=== PATIENT | female | born 2005 | race Caucasian/White ===

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

== ENCOUNTER 2023-09-09 14:40 | Emergency (ER) | payer OTHER, SELFPAY ==
[2023-09-09 15:12] VITALS: BP 117/82; BP 119/76; PULSE 88; PULSE 90; RESP 16; TEMP 36.7; O2SAT 100; O2SAT 98; BMI 23.6
[2023-09-09 16:14] LABS: MANUAL DIFF FLAG NO
[2023-09-09 16:16] LABS: Basophils Absolute Auto 0.1 X10*3/uL (0.0-0.2); Basophils Percent Auto 0.4 % (0-2); Eosinophils Absolute Auto 1.3 X10*3/uL (0.0-0.4); Eosinophils Percent Auto 10.5 % (0-4); Hematocrit 44.7 % (37.0-47.0); Hemoglobin 16.7 g/dl (12.0-16.0); Imm Gran Abs Auto 0.02 X10*3/uL (0.00-0.03); Imm Gran Pct Auto 0.2 % (0.0-0.4); Lymphocytes Absolute Auto 3.8 X10*3/uL (1.2-4.9); Lymphocytes Percent Auto 30.9 % (20-40); Mean Corpuscular HGB Conc 37.4 g/dl (31.0-35.0); Mean Corpuscular Hemoglobin 32.5 pg (27.0-33.0); Mean Platelet Volume 9.1 fL (9.4-12.3); Monocytes Absolute Auto 0.8 X10*3/uL (0.1-1.2); Monocytes Percent Auto 6.5 % (2-11); Neutrophils Absolute Auto 6.3 x10*3/uL (2.0-8.3); Neutrophils Percent Auto 51.5 % (45-73); Platelet Count 358 X10*3/uL (160-400); Red Blood Count 5.14 X10*6/uL (4.20-5.50); Red Cell Distribution Width 11.6 % (11.0-16.0); White Blood Count 12.3 X10*3/uL (4.8-10.8)
[2023-09-09 16:29] LABS: Alanine Aminotransferase 14 U/L (0-31); Albumin Level 5.1 g/dL (3.5-5.0); Alkaline Phosphatase 90 U/L (39-117); Anion Gap 14 (12-20); Aspartate Amino Transferase 17 U/L (5-31); Bilirubin Total 0.5 mg/dL (0.0-1.0); Blood Urea Nitrogen 12 mg/dL (9-16); Calcium 10.2 mg/dL (8.4-10.2); Carbon Dioxide 24 mmol/L (22-29); Chloride 106 mmol/L (96-108); Creatinine Clr Calc Pharmacy 77.6; Estimated Glomerular Filt Rate > 60; Glucose Random 83 mg/dL (60-115); Potassium 4.2 mmol/L (3.3-5.1); Sodium 140 mmol/L (135-145); Total Protein 8.8 g/dL (6.5-8.0)
--- NOTE | 2023-09-09 16:49 | ECG_ITS ---
Test Reason : SEIZURE Blood Pressure : / mmHG Vent. Rate : 078 BPM Atrial Rate : 078 BPM P-R Int : 110 ms QRS Dur : 082 ms QT Int : 394 ms P-R-T Axes : 037 024 -05 degrees QTc Int : 449 ms Artifact in tracing Sinus rhythm with short [place] Otherwise normal ECG No previous ECGs available Referred By: Arabella Ji Electronically Signed By:SITA GALVIN
[2023-09-09 16:51] LABS: Appearance Urine Clear; Color Urine Yellow; Glucose Urine UA Negative (Negative); Leukocyte Esterase Urine Negative (Negative); Nitrite Urine Negative (Negative); Specific Gravity - Urine 1.015 (1.005-1.025); Urine Blood Negative (Negative); Urine Ketones Negative (Negative); Urine Protein Negative (Neg-Trace)
[2023-09-09 16:52] LABS: UPreg QC Valid YES; Urine Pregnancy NEGATIVE (NEGATIVE)
[2023-09-09 16:57] LABS: Amphetamine Screen Urine Not Detected (Not Detect); Barbiturates, Urine Not Detected (Not Detect); Benzodiazepines Screen Urine Not Detected (Not Detect); Buprenorphine Scr Not Detected (Not Detect); Cannabinoid Screen Urine POSITIVE (Not Detect); Cocaine Screen Urine Not Detected (Not Detect); Fentanyl, urine Not Detected (Not Detect); Methadone Screen, Urine Not Detected (Not Detect); Opiate Screen Urine Not Detected (Not Detect); Oxycodone Screen Urine Not Detected (Not Detect); Phencyclidine Screen Urine Not Detected (Not Detect)
--- NOTE | 2023-09-09 17:53 | ED.SEIZURE ---
HPI - Seizure General Chief Complaint: Seizure Stated Complaint: WIT SZ @ WORK,HIT HEAD PER EMS Time Seen by Provider: 09/09/23 16:09 Source: patient Mode of arrival: EMS History of Present Illness HPI Narrative: 18-year-old female who states that she has had a longstanding history of syncope, she has been evaluated by Cardiology, she saw her primary care doctor last week. Patient states that today she was going to take care of the patient and then just passed out . Patient denies evaluation by Neurology recently, she has not on medication, she does endorse a significant history of anxiety and depression but is not on medications as they have not been offered to her. LMP irregular as she is on Depo. Patient states that she was informed by a provider at the clinic that she had had a seizure. Related Data Previous Rx's ?Medication ?Instructions ?Recorded epinephrine 0.3 mg/0.3 mL 0.3 mg (0.3 mL) IM Q10M PRN 02/21/21 injection, auto-injector (EpiPen) anaphylaxis #1 ea magnesium citrate 300 ml PO ONCE #296 mL 02/20/22 ondansetron 4 mg disintegrating 4 mg PO Q8H PRN nausea and 02/20/22 tablet vomiting #10 tabs metronidazole 500 mg tablet 500 mg PO Q12H 7 days #14 tabs 03/04/22 Allergies Allergy/AdvReac Type Severity Reaction Status Date / Time No Known Allergies Allergy Verified 09/09/23 15:17 Review of Systems Review of Systems: Pertinent positives and negatives as stated in HPI PMFSH Past Medical History Source: nursing notes reviewed Medical History Asthma Social History Social History Smoked in Last 30 Days: No Use of substances other than those prescribed or required for medical reasons: No Advance Directives: No Advance Directives Information Provided: No Do you have a plan to hurt others: No Plan Physical Exam Vital Signs: Vital Signs: Last Vital Signs Temp 97.9 F 09/09/23 19:50 Pulse 75 09/09/23 19:50 Resp 16 09/09/23 19:50 BP 119/76 09/09/23 19:50 Pulse Ox 98 09/09/23 19:50 O2 Del Method Room Air 09/09/23 19:50 BMI result Body Mass Index 23.6 VITAL SIGNS: Reviewed. GENERAL: Well developed, well nourished, in no acute distress. HEAD: Normocephalic/atraumatic EYES: PERRLA, EOMI EARS: Ext canals without abnormality NOSE: Nares patent bilateral OROPHARYNX: no oral lesions noted, posterior pharynx clear NECK: Supple, no adenopathy LUNGS: Normal breath sounds. No adventitious sounds or accessory muscle use. SpO2<98> CARDIOVASCULAR: Regular rate and rhythm without noted murmurs ABDOMEN: Soft, non-tender, non-distended with bowel sounds. MUSCULOSKELETAL: No tenderness, deformities, or effusions noted on gross inspection. EXTREMITIES: No cyanosis, clubbing or edema. SKIN: Inspection of the skin reveals no rashes NEUROLOGIC: Alert and oriented x 4. Strength and sensation to light touch were grossly intact x 4. Medical Decision Making Medical Decision Making [facility] Narrative: 18-year-old female with history and clinical presentation, DDX: Will evaluate for presence of infection, anemia, electrolyte derangements, cardiac arrhythmia. I reviewed all investigations in patient presents with noninfectious leukocytosis, elevated hemoglobin and no thrombocytopenia. Chemistry indices are grossly within normal limits without ANNA or electrolyte/liver enzyme derangements. Urinalysis is negative for UTI or hematuria. Troponin is undetectable and orthostatics are negative. I discussed all results and findings with the patient at bedside, I recommended that she follow-up with your primary care doctor and discuss possible referral to Cardiology, I did provide the patient with a referral to follow-up with neurology for further evaluation reported seizure symptoms. Differential Diagnosis Differential Diagnoses: The differential diagnosis associated with the presentation includes Please see the discussion above Admission/Observation Consideration of admission/observation: Escalation of care including admission/observation considered Please see the discussion above Lab Data [facility] Lab Attestation statement: I reviewed the patient's lab results. Please see the discussion above 09/09/23 16:09 09/09/23 16:09 Labs: Lab Results 09/09/23 09/09/23 Range/Units 16:09 16:38 WBC 12.3 H (4.8-10.8) X10*3/uL RBC 5.14 (4.20-5.50) X10*6/uL Hgb 16.7 H (12.0-16.0) g/dl Hct 44.7 (37.0-47.0) % MCV 87.0 (80.0-98.0) fL MCH 32.5 (27.0-33.0) pg MCHC 37.4 H (31.0-35.0) g/dl RDW 11.6 (11.0-16.0) % Plt Count 358 (160-400) X10*3/uL MPV 9.1 L (9.4-12.3) fL Immature Gran % (Auto) 0.2 (0.0-0.4) % Neut % (Auto) 51.5 (45-73) % Lymph % (Auto) 30.9 (20-40) % [place] % (Auto) 6.5 (2-11) % Eos % (Auto) 10.5 H (0-4) % Baso % (Auto) 0.4 (0-2) % Lymph # (Auto) 3.8 (1.2-4.9) X10*3/uL [place] # (Auto) 0.8 (0.1-1.2) X10*3/uL Eos # (Auto) 1.3 H (0.0-0.4) X10*3/uL Baso # (Auto) 0.1 (0.0-0.2) X10*3/uL Abs Immat Gran (auto) 0.02 (0.00-0.03) X10*3/uL Absolute Neuts (auto) 6.3 (2.0-8.3) x10*3/uL Absolute Nucleated RBC 0.000 (0.0-0.012) X10*3/uL Nucleated RBC % (auto) 0.0 (0.0-0.2) /100WBC Sodium 140 (135-145) mmol/L Potassium 4.2 (3.3-5.1) mmol/L Chloride 106 (96-108) mmol/L Carbon Dioxide 24 (22-29) mmol/L Anion Gap 14 (12-20) BUN 12 (9-16) mg/dL Creatinine 0.86 (0.5-1.4) mg/dL Estim Creat Clear Calc 77.6 Estimated GFR > 60 Random Glucose 83 (60-115) mg/dL Calcium 10.2 (8.4-10.2) mg/dL Total Bilirubin 0.5 (0.0-1.0) mg/dL AST 17 (5-31) U/L ALT 14 (0-31) U/L Alkaline Phosphatase 90 (39-117) U/L Troponin I High Sens < 2.7 (<3.5-17.0) ng/L Total Protein 8.8 H (6.5-8.0) g/dL Albumin 5.1 H (3.5-5.0) g/dL Urine Color Yellow Urine Appearance Clear Urine pH 7.0 (5.0-9.0) Ur Specific [place] 1.015 (1.005-1.025) Urine Protein Negative (Neg-Trace) mg/dL Urine Glucose (UA) Negative (Negative) mg/dL Urine Ketones Negative (Negative) mg/dL Urine Blood Negative (Negative) Urine Nitrite Negative (Negative) Ur Leukocyte Esterase Negative (Negative) Urine Test NEGATIVE (NEGATIVE) Urine Opiates Screen Not Detected (Not Detect) Ur Buprenorphine Scrn Not Detected (Not Detect) ng/mL Ur Oxycodone Screen Not Detected (Not Detect) ng/mL Urine Methadone Screen Not Detected (Not Detect) ng/mL Urine Fentanyl Screen Not Detected (Not Detect) Ur Barbiturates Screen Not Detected (Not Detect) Ur Phencyclidine Scrn Not Detected (Not Detect) Ur Amphetamines Screen Not Detected (Not Detect) U Benzodiazepines Scrn Not Detected (Not Detect) Urine Cocaine Screen Not Detected (Not Detect) U Marijuana (THC) Screen POSITIVE H (Not Detect) Independent Interpretation I performed an independent interpretation of an: EKG Interpretation: Sinus rhythm with short RI, HR -78, no STEMI, but there are noted T-wave inversions in lead 3/V3 External Record Review External record reviewed: Outpatient record and Prior outpatient labs Critical Care Time Critical Care Time Critical Care Time: Yes Total Critical Care Time: 45 Attestation: I personally attest to this time spent taking care of the patient. Discharge Plan Discharge Clinical Impression: Syncope, Seizure Patient Disposition: Home, Self-Care Instructions: Syncope (ED), Nonepileptic Seizures (ED) Additional Instructions: Please follow-up with your primary care doctor by calling the office tomorrow. You have been provided with a referral to follow-up with neurology and can call the office in the morning to set up an appointment for re-evaluation. Return to the ER for any worsening symptoms. Prescriptions: No Action epinephrine [EpiPen] 0.3 mg/0.3 mL auto-injector 0.3 mg IM Q10M PRN (Reason: anaphylaxis) Qty: 1 0RF Rx Instructions: for 2 doses metronidazole 500 mg tablet 500 mg PO Q12H 7 Days Qty: 14 0RF magnesium citrate Solution 300 ml PO ONCE Qty: 296 0RF ondansetron 4 mg tablet,disintegrating 4 mg PO Q8H PRN (Reason: nausea and vomiting) Qty: 10 0RF Referrals: Ashlyn Todd, PHYSICIAN'S AIDE-BC [Primary Care Provider] - Adriel Lozano MD [Physician] - Interventions: ED Discharge Assessment Last Done: 09/09/23 19:50 Discharge Date/Time: 09/09/23 19:51 Print Language: Frisian
[2023-09-09 19:24] VITALS: BP 110/59; PULSE 80
[2023-09-09 19:25] VITALS: BP 119/76; BP 125/78; PULSE 82; PULSE 93
[2023-09-09 19:33] LABS: Troponin-I High Sensitivity < 2.7 ng/L (<3.5-17.0)
[2023-09-09 19:50] VITALS: BP 119/76; PULSE 75; RESP 16; TEMP 36.6; O2SAT 98
== END 2023-09-09 19:51 | disposition home or self-care (01) ==
PROVIDERS: Emergency Provider Student in an Organized Health Care Education/Training Program; PCP Nurse Practitioner Family
DX: R55 Syncope and collapse (principal); R56.9 Unspecified convulsions
CPT/HCPCS: 36415; 80053; 80307; 81003; 81025; 84484; 85025; 93005; 99283; 99284

== ENCOUNTER → 2023-09-09 16:49 | Outpatient (BNV) | payer OTHER, SELFPAY | PROVIDERS: Emergency Provider Student in an Organized Health Care Education/Training Program; PCP Nurse Practitioner Family; Visit Provider Internal Medicine | DX: R56.9 Unspecified convulsions (principal) | CPT/HCPCS: 93010 ==

== ENCOUNTER 2023-09-23 15:10 | Emergency (ER) | payer MEDICAID, SELFPAY ==
--- NOTE | 2023-09-23 15:12 | ECG_ITS ---
Test Reason : chest pain Blood Pressure : / mmHG Vent. Rate : 084 BPM Atrial Rate : 084 BPM P-R Int : 136 ms QRS Dur : 082 ms QT Int : 388 ms P-R-T Axes : 052 027 009 degrees QTc Int : 458 ms Normal sinus rhythm with sinus arrhythmia Normal ECG When compared with ECG of 09-SEP-2023 17:05, Nonspecific T wave abnormality no longer evident in Anterior leads Referred By: Generic ED Physician Electronically Signed By:JORDIN EVANGELISTA MD
--- NOTE | 2023-09-23 15:16 | PC.NURSE ---
IV removed, EKG order placed and EKG being obtained at this time
[2023-09-23 15:20] VITALS: BP 110/70; PULSE 90; O2SAT 99
== END 2023-09-23 17:30 | disposition left against medical advice (07) ==
LOC: HO.ED 16:49
PROVIDERS: Emergency Provider Emergency Medicine
DX: R07.9 Chest pain, unspecified (principal); R06.2 Wheezing; F41.9 Anxiety disorder, unspecified
CPT/HCPCS: 93005; 99282; 99283

== ENCOUNTER → 2023-09-23 15:12 | Outpatient (BNV) | payer MEDICAID, SELFPAY | PROVIDERS: Emergency Provider Emergency Medicine; Visit Provider Internal Medicine Cardiovascular Disease | DX: I49.9 Cardiac arrhythmia, unspecified (principal) | CPT/HCPCS: 93010 ==

== ENCOUNTER 2023-12-10 14:51 | Outpatient (REF) | payer OTHER, SELFPAY ==
--- NOTE | ~2023-12-10 | MR_ITS ---
EXAMINATION: MR BRAIN WITHOUT CONTRAST CLINICAL INFORMATION: Seizures. COMPARISON: Head CT dated 11/07/2022. TECHNIQUE: Multiplanar, multisequence imaging of the brain was performed without contrast. FINDINGS: No diffusion abnormalities are identified to suggest an acute infarct. The ventricles are normal in size. No mass effect or midline shift is seen. No brain parenchymal signal abnormality is noted. No extra-axial fluid collections are seen. The brainstem and cerebellum are normal. The gradient refocused acquisition is normal. The hippocampi are normal in appearance. No focal cortical dysplasia or migrational abnormality is seen. The craniovertebral junction, marrow signal, and midline structures are normal. The major intracranial flow voids at the level of the [place] are preserved. The dural venous sinus flow voids are maintained. There is [id number] mucosal thickening in the ethmoid air cells and milder mucosal thickening elsewhere in the nasal sinuses. The mastoid air cells are well aerated. MR/MR head/brain wo con IMPRESSION: Normal MRI of the brain. No hippocampal pathology or epileptogenic focus identified.
== END 2023-12-10 14:52 | disposition home or self-care (01) ==
LOC: HO.MRI 14:51
PROVIDERS: Visit Provider Psychiatry & Neurology Neurology
DX: R56.9 Unspecified convulsions (principal)
CPT/HCPCS: 70551

== ENCOUNTER 2024-03-16 16:06 | Outpatient (REF) | payer OTHER, SELFPAY ==
[2024-03-16 16:15] LABS: Appearance Urine Clear; Color Urine Yellow; Glucose Urine UA Negative (Negative); Leukocyte Esterase Urine Negative (Negative); Nitrite Urine Negative (Negative); Urine Blood Negative (Negative); Urine Ketones Negative (Negative); Urine Protein Negative (Neg-Trace)
[2024-03-16 16:21] LABS: Bacteria Urine None Seen (None Seen); Hyaline Casts Urine 0-2 /LPF (0-2); RBC Urine 0-2 /HPF (0-2); Squamous Epithelial Cell Urine 0-2 /HPF (0-2); WBC Urine 0-5 /HPF (0-5)
== END 2024-03-16 16:07 | disposition home or self-care (01) ==
LOC: HO.LNP 16:06
PROVIDERS: Visit Provider Family Medicine
DX: R35.0 Frequency of micturition (principal)
CPT/HCPCS: 81001

== ENCOUNTER 2024-11-05 13:15 | Outpatient (REF) | payer MEDICAID, SELFPAY ==
--- NOTE | ~2024-11-05 | US_ITS ---
CLINICAL HISTORY: menorrhagia Transabdominal and transvaginal pelvic ultrasound Comparison: None Findings: Uterus 8.4 x 2.9 x 4.2 cm. Reported measurements on sheet do not match images. Endometrium 2 mm. No significant free fluid. Right ovary 2.7 x 1.7 x 1.7 cm. Left ovary 2.2 x 1.9 x 1.6 cm. No significant focal abnormality. Impression: No acute process This document has been electronically signed by: Santosh Garcia MD on 11/06/2024 20:22:50
--- OUTSIDE RECORDS SUMMARY | 2024-11-05 13:46 | XMS_ITS | Clinical Summary ---
Author Organization [address] [place] [address] Address [address] [place] [address] Phone Care Team Providers Care [employer] Name Role Phone Adrianna Burk MD Primary Care Provider Allergies Active Allergy Reactions Criticality Noted Date Comments Amoxicillin High 08/24/2024 Shellfish Derived High 08/24/2024 Medications acetaminophen (TYLENOL) 500 mg tablet Take 1 tablet (500 mg total) by mouth if needed. 08/16/2024 Active Ventolin HFA 90 mcg/actuation inhaler Inhale 2 puffs by mouth if needed. 09/29/2023 Active hydrOXYzine HCL (ATARAX) 25 mg tablet Take 10 mg by mouth if needed for anxiety. 09/29/2023 Active predniSONE (DELTASONE) 20 mg tablet Take 1 tablet (20 mg total) by mouth 1 (one) time each day. 04/26/2024 Active LORazepam (ATIVAN) 0.5 mg tablet Take 1 tablet (0.5 mg total) by mouth 1 (one) time each day. Max Daily Amount: 0.5 mg Active cetirizine (ZyrTEC) 5 mg chewable tablet Chew 1 tablet (5 mg total) 1 (one) time each day. Active Encounters Date Type Department Care Team Description 08/24/2024 11:00 AM EDT Consult [address] [id number] Rolo Stinson MD Episode of altered consciousness (Primary Dx) from Last 3 Months Social History Tobacco Use Types Packs/Day Years Used Date Smoking Tobacco: Never Assessed Comments Unknown Sex and Gender Information Value Date Recorded Sex Assigned at Not on file Legal Sex Female 3:43 PM EDT Gender Identity Not on file Sexual Orientation Not on file Last Filed Vital Signs Vital Sign Reading Time Taken Comments Blood Pressure 121/86 08/24/2024 10:59 AM EDT Pulse 98 08/24/2024 10:59 AM EDT Temperature - - Respiratory Rate - - Oxygen Saturation 98% 08/24/2024 10:59 AM EDT Inhaled Oxygen Concentration - - Weight 57.6 kg (127 lb) 08/24/2024 10:59 AM EDT Height 152.4 cm (5') 08/24/2024 10:59 AM EDT Body Mass Index 24.8 08/24/2024 10:59 AM EDT Plan of Treatment Upcoming Encounters Date Type Department Care Team (Late st Contact Info) Description 02/24/2025 11:00 AM EDT Office Visit [facility] [address] [place] [address] Keisha Soliman PA [address] [place] [address] Health Maintenance Due Date Last Done Comments Gonorrhea/Chlamydia Screening 2003 Meningococcal B Vaccine (2 of 2 - [place] SCDM 2-dose series) 12/19/2023 06/20/2023 COVID-19 Vaccine ( season) 2024 06/25/2022, 06/06/2021, 05/13/2021 HIV Screening 02/19/2024 Hepatitis C Screening 02/19/2024 Social Influencers of Health Screening 02/19/2024 Cervical Cancer Screening: Pap Smear 07/12/2024 Influenza Vaccine (Season Ended) 2025 06/20/2023, 06/06/2021, 04/12/2020, Additional history exists Depression Screening 02/09/2025 02/10/2024 Annual Well Child Visit (3-21 years old) 03/16/2025 03/16/2024, 02/10/2024 DTaP,Tdap,and Td Vaccines (7 - Td or Tdap) 10/02/2025 10/03/2015, 08/04/2008, 02/27/2005, Additional history exists Hepatitis B Vaccines Completed 01/29/2005, 02/17/2004, 2003 HIB Vaccines Completed 02/27/2005, 12/2003, 2003, Additional history exists IPV Vaccines Completed 08/04/2008, 01/11, 2003, Additional history exists MMR Vaccines Completed 08/04/2008, 01/29/2005 Varicella Vaccines Completed 08/04/2008, 01/29/2005 HPV Vaccines Completed 04/01/2016, 10/03/2015 Hepatitis A Vaccines Completed 04/16/2017, 10/03/19 16 Meningococcal ACWY Vaccine Completed 05/18/2020, Pneumococcal Vaccine: Pediatrics (0 to 5 Years) and At-Risk Patients (6 to 64 Years) Completed 02/10/2024, 02/27/2005, 02/17/2004, Additional history exists RSV Immunization Patients Under 20 months Aged Out No longer eligible based on patient's age to complete this topic Insurance MEDICAID - [place] Care Teams [employer] Contractor Relationship Specialty Start Date End Date Adrianna Burk MD [address] [place] [phone] PCP - General Family Medicine 06/03/24
== END 2024-11-05 13:16 | disposition home or self-care (01) ==
LOC: HO.US 13:15
PROVIDERS: PCP Family Medicine; Visit Provider Advanced Practice Midwife
DX: N92.0 Excessive and frequent menstruation with regular cycle (principal)
CPT/HCPCS: 76830; 76856

== ENCOUNTER → 2024-11-05 13:17 | Outpatient (BNV) | payer MEDICAID, SELFPAY | PROVIDERS: PCP Family Medicine; Visit Provider Radiology Diagnostic Radiology | DX: N92.0 Excessive and frequent menstruation with regular cycle (principal) | CPT/HCPCS: 76830; 76856 ==

== ENCOUNTER 2025-04-11 10:00 | Outpatient (REF) | payer MEDICAID, SELFPAY ==
--- OUTSIDE RECORDS SUMMARY | 2025-04-11 09:15 | XMS_ITS | Encounter Summary ---
Author Organization [employer] Address [address] [place] [address] Care Team Providers Care Cooler Tender Name Role Phone Adrianna Burk MD Primary Care Provider [phone] Reason for Referral * Consultation (Routine) - Pending Review Specialty Diagnoses / Procedures Referred By Khalida barron Referred To Contact Pulmonary Disease Diagnoses Mild intermittent asthma without complication Eloisa Brambila MD [address] [place] [phone] Phone: tel: fax: Referral ID Status Reason Start Date Expiration Date Visits Requested Visits Authorized [id number] Pending Review Specialty Services Required 04/11/2025 04/11/2026 1 1 Reason for Visit * Reason Comments Annual Exam Encounter Details Date Type Department Care Team (Late st Contact Info) Description 04/11/2025 9:15 AM EST Office Visit [facility] [address] [place] [address] [phone] Eloisa Brambila MD [address] [place] [address] [phone] Mild intermittent asthma without complication (Primary Dx); Vaccine counseling; Screening-pulmonary TB; Encounter for hepatitis C screening test for low risk patient; Screening for HIV without presence of risk factors; Impacted cerumen, left ear; Physical exam Social History Tobacco Use Types Packs/Day Years Used Date Smoking Tobacco: Never Passive Smoke Exposure: Never Smokeless Tobacco: Never Alcohol Use Standard Drinks/Week Comments Never 0 (1 standard drink = 0.6 oz pur e alcohol) Depression Answer Date Recorded Patient Health Questionnaire-9 Score 12/02/2024 Patient Health Questionnaire-9 Score 12/02/2024 Last PHQ-9: Questionnaire Data Not on file 0 12/02/2024 Housing Stability Answer Date Recorded What is your housing situation today? I have anna kuo 04/11/[address] you li ve. Do you have problems with any of the following? None of the above 04/11/2025 Food Insecurity Answer Date Recorded Within the past 12 months, y ou worried that your food would run out before you got money to buy more: Never True 04/11/2025 Within the past 12 months,th e food you bought just didn't last and you didn't have enough money to get more: Never True 05/2024 Transportation Answer Date Recorded In the past 12 months, has l ack of transportation kept you from medical appts, meetings, work or from getting things needed for daily living? No 04/11/2025 Utilities Answer Date Recorded In the past 12 months, has t he electric, gas, oil or water company threatened to shut off services in your home? No 04/11/2025 Depression Answer Date Recorded Patient Health Questionnaire-2 Score 5 12/02/2024 Internet Access Answer Date Recorded Internet Access Q1 No 04/11/2025 Internet Access Q2 I do not want or need it 05/2024 Comments No Sex and Gender Information Value Date Recorded Sex Assigned at Female 09/12/2023 9:36 AM EDT Legal Sex Female 9:36 AM EDT Gender Identity Female 09/12/2023 9:36 AM EDT Sexual Orientation Choose not to disclose 2023 9:36 AM EDT documented as of this encounter Last Filed Vital Signs Vital Sign Reading Time Taken Comments Blood Pressure 110/76 04/11/2025 9:30 AM EST Pulse 86 04/11/2025 9:30 AM EST Temperature 37.2 C (98.9 F) 04/11/2025 9:30 AM EST Respiratory Rate 20 04/11/2025 9:30 AM EST Oxygen Saturation 54% 04/11/2025 9:30 AM EST Inhaled Oxygen Concentration - - Weight 60.1 kg (132 lb 9.6 oz) 04/11/2025 9:30 A M EST Height 152.4 cm (5') 04/11/2025 9:30 AM EST Body Mass Index 25.9 04/11/2025 9:30 AM EST documented in this encounter Progress Notes * Eloisa Brambila MD - 04/11/2025 9:15 AM EST Subjective Arminda Rendon is a 19 y.o. female who has seizure disorder, asthma, and anxity, and patient presentsfor physicl exam due ton eeding for work. Last PCP visit with Dr. Burk 11/2024. Neurology was rescheduled twice, does not have appointment Was told by broodmare barn groom that needs referral. I advised her to all as referral was placed 09/2024. Agrees to pulmonology referral 04/11/25 for uncontrolled asthma. Has therapist. NO longer taking sertraline. Need MMR titers and Tb screen. SH: Denies tobacco, EtOH , recreational drugs, wears seatbelt. Live with mother. Has control patch prescribed by OB. Reports had pap last month at [facility]. Review of Systems Constitutional: Negative for activity change, appetite change and fever. Respiratory: Negative for shortness of breath. Cardiovascular: Negative for chest pain. Objective Vitals: 04/11/25 0930 BP: 110/76 BP Location: Left arm Patient Position: Sitting BP Cuff Size: Adult Pulse: 86 Resp: 20 Temp: 98.9 ??F (37.2 ??C) TempSrc: Temporal SpO2: (!) 54% Weight: 132 lb 9.6 oz (60.1 kg) Height: 5' (1.524 m) Physical Exam Constitutional: General: She is not in acute distress. Appearance: Normal appearance. She is not ill-appearing. HENT: Head: Normocephalic and atraumatic. Left Ear: There is impacted cerumen. Mouth/Throat: Mouth: Mucous membranes are moist. Eyes: Extraocular Movements: Extraocular movements intact. Pupils: Pupils are equal, round, and reactive to light. Cardiovascular: Rate and Rhythm: Normal rate and regular rhythm. Heart sounds: No murmur heard. Pulmonary: Effort: Pulmonary effort is normal. No respiratory distress. Breath sounds: Normal breath sounds. No wheezing or rhonchi. Skin: General: Skin is warm. Neurological: Mental Status: She is alert. Mental status is at baseline. Psychiatric: Speech: Speech normal. Behavior: Behavior normal. Behavior is cooperative. Thought Content: Thought content normal. Thought content does not include suicidal ideation. Thought content does not include suicidal plan. Cognition and Memory: Cognition and memory normal. Judgment: Judgment normal. Screenings: PHQ-2/9 Score: Patient Health Questionnaire-9 Score: 19 (12/02/2024 9:07 AM) Patient Health Questionnaire-2 Score: 5 (12/02/2024 9:07 AM) Thoughts that you would be better off or hurting yourself in some way: Several days (59:07 AM) JORGE-7 Score: JORGE-7 Total Score: 21 (12/02/2024 9:08 AM) Allergies[1] Current Outpatient Medications Medication Instructions acetaminophen (TYLENOL) 500 mg, Oral, Every 6 hours PRN albuterol 2.5 mg, Nebulization, Every 4 hours PRN azelastine (Astelin) 0.1 % nasal spray 1 spray, Nasal, 2 times daily Blood Pressure Monitor misc Check BP daily budesonide-formoterol (Symbicort) 160-4.5 MCG/ACT inhaler Take 2 puffs twice daily. May use 1-2 puffs every 4 hours as needed for difficulty breathing. Maximum 12 puffs per day. Rinse mouth with water after use. cetirizine (ZYRTEC) 10 mg, Oral, Daily chlorhexidine (Peridex) 0.12 % solution Swish 15 mL morning and night for 1 minute. Spit, do not swallow. Do not eat or drink for 30 minutes following use. docusate sodium (Colace) 100 MG capsule TAKE 1 CAPSULE (100 MG) BY MOUTH IN THE MORNING AND AT BEDTIME NEEDED FOR CONSTIPATION EPINEPHrine (Epipen) 0.3 MG/0.3ML injection syringe Inject into muscle immediately for signs of anaphylaxis AND call 911. Repeat if symptoms worsen/recur or if uncertain medicine was given fluticasone (Flonase) 50 MCG/ACT nasal spray ibuprofen 600 MG tablet 1 tablet every 8 hours with food during menses LORazepam (Ativan) 0.5 MG tablet Once daily and as needed for seizure mometasone (Elocon) 0.1 % cream APPLY TO AFFECTED AREA EVERY DAY FOR 14 DAYS montelukast (SINGULAIR) 10 mg, Oral, Daily norelgestromin-ethinyl estradiol (Ortho-Evra) 150-35 MCG/24HR Apply 1 patch each week for 3 weeks, then remove for 1 week. sertraline (ZOLOFT) 100 mg, Oral, Daily Spacer/Aero-Holding Chambers (AeroChamber Plus Shilo-Vu Large) [facility] dicct Assessment & Plan Mild intermittent asthma without complication Using rescue inhailer daily. -Continue Symbicort and Singular. -Referral to pulmonology Orders: Referral to Pulmonology; Future Vaccine counseling Orders: T-SPOT??.TB; Future Screening-pulmonary TB Orders: Measles, Mumps, and Rubella (MMR) Antibodies (IgG) Panel, Immune Status; Future Encounter for hepatitis C screening test for low risk patient Orders: Hepatitis C Antibody with Reflex to HCV, RNA, Quantitative, Real-Time PCR; Future Screening for HIV without presence of risk factors Orders: HIV-1/2 Antigen and Antibodies, Fourth Generation, with Reflexes; Future Impacted cerumen, left ear Orders: carbamide peroxide (Debrox) 6.5 % otic solution; Administer 5-10 drops into affected ear(s) 2 timesdaily for 4 days. Physical exam Normal growth and development. Anticipatory guidance discussed. [1] Allergies Allergen Reactions Amoxicillin Shellfish Protein-Containing Drug Products Anaphylaxis shrimp Amoxicillin-Pot Clavulanate documented in this encounter Miscellaneous Notes * Assessment & Plan Note - Eloisa Brambila MD - 04/11/2025 9:15 AM EST Associated Problem(s): Asthma Using rescue inhailer daily. -Continue Symbicort and Singular. -Referral to pulmonology Orders: Referral to Pulmonology; Future documented in this encounter Plan of Treatment Upcoming Encounters Date Type Department Care Team (Late st Contact Info) Description 04/28/2025 11:15 AM EST Office Visit [facility] [address], [place] [phone] Adrianna Burk MD [address] [place] [address] Scheduled Orders Name Type Priority Associated Diagnoses Orde r Schedule T-SPOT .TB Lab Routine Vaccine counseling Expected: 04/11/2025 (Approximate), Expires: 04/11/2026 Measles, Mumps, and Rubella (MMR) Antibodies (IgG) Panel, Immune Status Lab Routine Screening-pulmonary TB Expected: 04/11/2025 (Approximate), Expires: 04/11/2026 Hepatitis C Antibody with Reflex to HCV, RNA, Quantitative, Real-Time PCR Lab Routine Encounter for hepatitis C screening test for low risk patient Expected: 04/11/2025 (Approximate), Expires: 04/11/2026 HIV-1/2 Antigen and Antibodies, Fourth Generation, with Reflexes Lab Routine Screening for HIV without presence of risk factors Expected: 04/11/2025 (Approximate), Expires: 04/11/2026 Scheduled Referrals Name Type Priority Associated Diagnoses Orde r Schedule Referral to Pulmonology Outpatient Referral Routine Mild intermittent asthma without complication Expected: 04/11/2025 (Approximate), Expires: 04/11/2026 documented as of this encounter Visit Diagnoses Diagnosis Mild intermittent asthma without complication- Primary Vaccine counseling Screening-pulmonary TB Screening examination for pulmonary tuberculosis Encounter for hepatitis C screening test for low risk patient Screening for HIV without presence of risk factors Impacted cerumen, left ear Physical exam Unspecified general medical examination documented in this encounter Additional Health Concerns Assessment Noted Time PHQ-9 Depression Total Score: 19 12/02/2 025 9:07 AM EDT documented as of this encounter Care Teams Cooler Tender Relationship Specialty Start Date End Date Adrianna Burk MD [address] [place] [address] PCP - General Family Medicine 11/21/23 documented as of this encounter
[2025-04-11 11:30] LABS: Hematocrit 44.5 % (37.0-47.0); Hemoglobin 15.7 g/dl (12.0-16.0); Mean Corpuscular HGB Conc 35.3 g/dl (31.0-35.0); Mean Corpuscular Hemoglobin 32.0 pg (27.0-33.0); Mean Corpuscular Volume 90.8 fL (80.0-98.0); NRBC Abs Auto 0.000 X10*3/uL (0.0-0.012); NRBC Pct Auto 0.0 /100WBC (0.0-0.2); Platelet Count 391 X10*3/uL (160-400); Red Blood Count 4.90 X10*6/uL (4.20-5.50); White Blood Count 9.6 X10*3/uL (4.8-10.8)
--- OUTSIDE RECORDS SUMMARY | 2025-04-11 12:11 | XMS_ITS | Clinical Summary ---
Author Organization [employer] Address [address] [place] [address] Care Team Providers Care Teradata Solution Architect Name Role Phone Adrianna Burk MD Primary Care Provider [phone] Allergies Active Allergy Reactions Criticality Noted Date Comments Amoxicillin High 08/24/2024 Amoxicillin-Pot Clavulanate 06/14/19 23 Shellfish Protein-Containing Drug Products Anaphylaxis High 06/18/2022 shrimp Medications * This document contains information received from the source organization and may not represent a complete record from that organization. azelastine (Astelin) 0.1 % nasal spray Administer 1 spray into affected nostril(s) 2 times daily. Active EPINEPHrine (Epipen) 0.3 MG/0.3ML injection syringe Inject into muscle immediately for signs of anaphylaxis AND call 911. Repeat if symptoms worsen/recur or if uncertain medicine was given Active fluticasone (Flonase) 50 MCG/ACT nasal spray 023 Active mometasone (Elocon) 0.1 % cream APPLY TO AFFECTED AREA EVERY DAY FOR 14 DAYS 024 Active Spacer/Aero-Hol ding Chambers (AeroChamber Plus Hsilo-Vu Large) [facility] dicct 024 Active albuterol (2.5 MG/3ML) 0.083% nebulizer solution Take 3 mL (2.5 mg) by nebulization every 4 (four) hours if needed for wheezing or shortness of breath (Maximum 4 treatments per day). 75 mL 1 024 Active Blood Pressure Monitor [facility] Check BP daily 1 each 024 Active norelgestromin- ethinyl estradiol (Ortho-Evra) 150-35 MCG/24HR Apply 1 patch each week for 3 weeks, then remove for 1 week. 3 patch 11 Active acetaminophen (Tylenol) 500 MG tablet Take 1 tablet (500 mg) by mouth every 6 (six) hours if needed for mild pain for up to 20 doses. 20 tablet Active chlorhexidine (Peridex) 0.12 % solution Swish 15 mL morning and night for 1 minute. Spit, do not swallow. Do not eat or drink for 30 minutes following use. 473 mL Active ibuprofen 600 MG tablet 1 tablet every 8 hours with food during menses 21 tablet 2 Active montelukast (Singulair) 10 MG tablet Take 1 tablet (10 mg) by mouth Once per day. 90 tablet 3 025 2025 Active LORazepam (Ativan) 0.5 MG tablet Once daily and as needed for seizure 28 tablet Active budesonide-form oterol (Symbicort) 160-4.5 MCG/ACT inhalerIndicati ons:Mild intermittent asthma with acute exacerbation Take 2 puffs twice daily. May use 1-2 puffs every 4 hours as needed for difficulty breathing. Maximum 12 puffs per day. Rinse mouth with water after use. 1 each 1 Active cetirizine (ZyrTEC) 10 MG tablet Take 1 tablet (10 mg) by mouth Once per day. 90 tablet 3 Active docusate sodium (Colace) 100 MG capsule TAKE 1 CAPSULE (100 MG) BY MOUTH IN THE MORNING AND AT BEDTIME NEEDED FOR CONSTIPATION 180 capsule 1 Active carbamide peroxide (Debrox) 6.5 % otic solutionIndicat ions:Impacted cerumen, left ear Administer 5-10 drops into affected ear(s) 2 times daily for 4 days. 30 mL 025 2024 Active sertraline (Zoloft) 100 MG tablet Take 1 tablet (100 mg) by mouth Once per day. 90 tablet 3 025 2024 Discontinued(M ed list cleanup (will not trigger notification to Pharmacy)) Active Problems Problem Noted Date Diagnosed Date Depression 12/02/2024 JORGE (generalized anxiety disorder) 12/02/2024 Impacted cerumen of left ear 11/02/2024 Benign paroxysmal positional vertigo, left 07/08 Assessment & Plan (07/08/2024 2:22 PM EST): Images from the original note were not included. Reported (room-spinning)dizziness. Nystagmus with tilting head to the left. Consistent with benign paroxysmal positional vertigo. -given information for vertigo exercises and supportive therapy. [email or web address] TBI (traumatic brain injury) 02/10/2024 Assessment & Plan (12/03/2024 8:31 PM EDT): - concussion while playing basketball, fell backwards and hit head in 2017 - no LOC, but patient had a vomiting and neck pain - her seizure (seizure-like activity) may be due to TBI; consider referring Assessment & Plan (03/21/2024 3:50 PM EST): - concussion while playing basketball, fell backwards and hit head in 2017 - no LOC, but patient had a vomiting and neck pain - her seizure (seizure-like activity) may be due to TBI; consider referring Assessment & Plan (02/10/2024 10:59 AM EDT): - concussion while playing basketball, fell backwards and hit head in 2017 - no LOC, but patient had a vomiting and neck pain - her seizure (seizure-like activity) may be due to TBI; consider referring 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 Assessment & Plan (03/21/2024 3:57 PM EST): - history of trauma (her friend's suicide that resulted in PTSD symptoms, including flashbacks, nightmares, suicidal ideation) - previously connected with behavioral health service - patient declines a referral to integrated behavioral health service for another behavioral health service - continue escitalopram - reviewed judicious use of THC/CBD Recurrent syncope 09/10/2023 Overview (02/09/2024): 04/2019: EEG ( wake & asleep. Photic stim & hyperventilation did not trigger any events) & EKG normal 2019: Saw Dr Baez (cardiology). All well. 48 hour Holter done - no result 09/29/23: [place] to be vasovagal syncope, but question of epilepsy also. Pt admits to anxiety. Has Neurology appt on 10/21/23 and Cardiology appt on 11/06/23. While I feel there is a significant anxiety component to her syncope, the increased frequency and nature of these episodes (LOC longer than 5 minutes along with vomiting) are concerning. Syncope prevention counseling done at length with pt. She will schedule an anxiety consult with either myself or PCP. Advised she get car rides instead of driving herself until cleared by Neurology. Last Assessment & Plan: [place] to be vasovagal syncope, but question of epilepsy also. Pt admits to anxiety. Has Neurology appt on 10/21/23 and Cardiology appt on 11/06/23. While I feel there is a significant anxiety component to her syncope, the increased frequency and nature of these episodes (LOC longer than 5 minutes along with vomiting) are concerning. Syncope prevention counseling done at length with pt. She will schedule an anxiety consult with either myself or PCP. Advised she get car rides instead of driving herself until cleared by Neurology. Assessment & Plan (07/08/2024 2:20 PM EST): Seen in walk-in 07/08/24 for (room-spinning)dizziness. Nystagmus with tilting head to the left. Consistent with benign paroxysmal positional vertigo. See plan under BPPV. Assessment & Plan (06/02/2024 4:59 PM EST): - following with Dr. Nestor quintero 48 hour Holter - likely vasovagal - obtain record - reviewed precautionary measure Assessment & Plan (03/21/2024 3:53 PM EST): - following with Dr. Nestor quintero 48 hour Holter - likely vasovagal - obtain record - reviewed precautionary measure Assessment & Plan (02/17/2024 9:41 AM EDT): - following with Dr. Nestor quintero 48 hour Holter - likely vasovagal - obtain record - reviewed precautionary measure Seizure-like activity (CMS/HCC) 09/10/2023 Assessment & Plan (12/03/2024 8:31 PM EDT): - seen by Dr. Jones. Prescribed clonazepam. - second opinion mychal Harper on 08/24/24. Referred to Dr. Williamson, upcoming appointment on 11/25/24. No AED. - normal MRI in November 2023 - normal EEG in 2019 - patient states she had EEG in 2023 (result is not available). - continue judicious use of lorazepam - ?pseudoseizure - continue working on stress reduction and precautionary measure - patient states she is still driving and is aware of its risk Assessment & Plan (09/24/2024 10:38 AM EDT): - seen by Dr. Jones. Prescribed clonazepam. - second opinion mychal Harper on 08/24/24. Referred to Dr. Williamson, upcoming appointment on 11/25/24. No AED. - normal MRI in November 2023 - normal EEG in 2018 - patient states she had EEG in 2023 (result is not available). - continue judicious use of lorazepam - ?pseudoseizure - continue working on stress reduction and precautionary measure - patient states she is still driving and is aware of its risk Assessment & Plan (06/06/2024 12:24 PM EST): - following with Dr. Jones - normal MRI in November 2023 - normal EEG in 2019 - patient states she had EEG in 2023 (result is not available). - currently prescribed clonazepam prn, but patient dislikes its side effect. - will switch to short-acting lorazepam. Discussed about its side effect. - ?pseudoseizure - continue working on stress reduction and precautionary measure - patient states she is still driving and is aware of its risk - patient requests a referral to another neurologist for second opinion Assessment & Plan (03/21/2024 3:51 PM EST): - following with Dr. Jones - normal MRI in November 2023 - patient states she had EEG (result is not available). - currently prescribed clonazepam prn - ?pseudoseizure - continue working on stress reduction and precautionary measure - patient states she is still driving and is aware of its risk - patient requests a referral to another neurologist for second opinion Assessment & Plan (02/17/2024 9:38 AM EDT): - following with Dr. Jones - normal MRI in November 2023 - patient states she had EEG (result is not available). - not on anti-seizure medication - ?pseudoseizure - continue working on stress reduction and precautionary measure - patient states she is still driving and is aware of its risk Allergic rhinitis 06/20/2023 Overview (02/09/2024): 09/29/23: Advised pt that she optimize her allergic rhinitis prevention and control. Counseling done. Last Assessment & Plan: Advised pt that she optimize her allergic rhinitis prevention and control. Counseling done. Assessment & Plan (12/02/2024 9:35 AM EDT): - due to animal hair and dander - continue cetirizine and fluticasone nasal - continue montelukast - referred back to [facility] for AIT / SCIT or biologics in September 2024 Assessment & Plan (09/24/2024 10:31 AM EDT): - due to animal hair and dander - continue cetirizine and fluticasone nasal - add montelukast - refer back to [facility] for AIT / SCIT or biologics Assessment & Plan (03/21/2024 3:59 PM EST): - due to animal hair and dander - continue cetirizine and fluticasone nasal Assessment & Plan (02/17/2024 9:46 AM EDT): - due to animal hair and dander - continue cetirizine and fluticasone nasal Asthma 06/20/2023 Overview (02/09/2024): 09/29/23: Currently flared in the setting of poorly controlled seasonal allergies. Wheezing and tight in office and responded very well to Albuterol neb. Advised 3-day course of oral steroids for current flare. Advised she resume taking her daily controller (now Asmanex). Albuterol prn with spacer. Counseling done. Recheck in 4 weeks or sooner if needed. Last Assessment & Plan: Currently flared in the setting of poorly controlled seasonal allergies. Wheezing and tight in office and responded very well to Albuterol neb. Advised 3-day course of oral steroids for current flare. Advised she resume taking her daily controller (now Asmanex). Albuterol prn with spacer. Counseling done. Recheck in 4 weeks or sooner if needed. Assessment & Plan (04/11/2025 10:24 AM EST): Using rescue inhailer daily. -Continue Symbicort and Singular. -Referral to pulmonology Orders: Referral to Pulmonology; Future Assessment & Plan (12/02/2024 9:42 AM EDT): - most recent asthma exacerbation in October 2024. Received prednisone. - continue SMART with budesonide / formoterol (Symbicort) - continue montelukast (Singulair) Assessment & Plan (09/24/2024 10:39 AM EDT): - start SMART. Switch fluticasone ICS to budesonide / formoterol (Symbicort) - Prescribed montelukast (Singulair) 10 MG tablet 09/23/24 - Prescribed budesonide-formoterol (Symbicort) 160-4.5 MCG/ACT inhaler 09/23/24 Assessment & Plan (06/02/2024 4:58 PM EST): - continue fluticasone ICS - continue albuterol HFA and neb prn Assessment & Plan (03/21/2024 3:52 PM EST): - continue fluticasone ICS - continue albuterol HFA and neb prn - will write a script for nebulizer Assessment & Plan (02/17/2024 9:40 AM EDT): - continue fluticasone ICS - continue albuterol HFA prn Multiple allergies 08/30/2022 Overview (02/09/2024): Seen 08/27/22 by [facility] in [facility] Assessment & Plan: Will get notes from allergy visit Assessment & Plan (12/02/2024 9:34 AM EDT): - previously evaluated by [facility] - continue cetirizine and fluticasone nasal - continue montelukast - referred back to financial assistance specialist for allergen immunotherapy (subcutaneous immunotherapy) / or biologic treatment in September 2024. Advised to call the office for an appointment. Assessment & Plan (09/24/2024 10:31 AM EDT): - previously evaluated by [facility] - continue cetirizine and fluticasone nasal - add montelukast - refer back to financial assistance specialist for allergen immunotherapy (subcutaneous immunotherapy) / or biologic treatment Assessment & Plan (03/21/2024 3:57 PM EST): - previously evaluated by [facility] - start cetirizine Allergy to seafood 06/18/2022 Overview (02/09/2024): 06/18/2022 had anaphylaxis reaction to exposure to shrimp. Has an Epipen. Has appt with [facility] in August. Continue to avoid all seafood until evaluated by [employer]. Last Assessment & Plan: Epipen refilled today Assessment & Plan (12/03/2024 8:30 PM EDT): - continue avoidance and carry epi pen Assessment & Plan (03/21/2024 3:59 PM EST): - continue avoidance and carry epi pen Assessment & Plan (02/17/2024 9:45 AM EDT): - continue avoidance and carry epi pen Chronic idiopathic constipation 06/18/2022 Overview (02/09/2024): ER visit on 02/20/2022 for abdominal pain, dx with constipation, placed on miralax, magnesium citrate 300 mg, and zofran. ER visit on 02/26 for vomiting 03/06/2022 visit for nausea and vomiting recurrent 06/18/2022 still with constipation despite TID Miralax. No nausea or vomiting but decreased appetite. Refer to GI. Start with 6 small meals per day. Decrease Miralax to BID until GI appt. Last Assessment & Plan: Better with miralax, no longer with hard or painful stools Assessment & Plan (12/02/2024 9:35 AM EDT): - History of ED visit for abdominal pain. Imaging study showed constipation. Rx Miralax, Mg citrat. - Continue prune / prune juice - Continue docusate; consider senna - Encouraged to increase fiber in her diet Assessment & Plan (09/24/2024 10:33 AM EDT): - History of ED visit for abdominal pain. Imaging study showed constipation. Rx Miralax, Mg citrat. - Continue prune / prune juice - Trial of docusate; consider senna - Encouraged to increase fiber in her diet Assessment & Plan (03/21/2024 3:53 PM EST): - History of ED visit for abdominal pain. Imaging study showed constipation. Rx Miralax, Mg citrat. - Improved Assessment & Plan (02/17/2024 9:42 AM EDT): - History of ED visit for abdominal pain. Imaging study showed constipation. Rx Miralax, Mg citrat. - Improved Anxiety with depression 12/07/2021 Overview (02/09/2024): Evaluation appointment on 11/23/21 and follow up scheduled. 02/27/22 - Pt did follow-through with previous treatment with another [facility] Pt's anxiety has increased while she is away at school - is miserable and is experiencing daily vomiting. Also seems to be developing some depressive symptoms. 09/29/23: Pt admits to significant anxiety and some depression today. PHQ-9 screen 14, JORGE-7 score 21. This may be a major contributor to her sudden increase in frequency of fainting episodes ever since she started a new job 2 months ago. Advised a separate consult rachel to discuss further. Declining [facility] today. 10/16/23: Anxiety consult today - JORGE-7 score 21, PHQ-9 score 16. Significant disabling anxiety that is affecting all aspects of her daily functioning. She is declining medication at this time, but does agree to [facility] intervention. WHO done. Will followup in one month. Last Assessment & Plan: Anxiety consult today - JORGE-7 score 21, PHQ-9 score 16. Significant disabling anxiety that is affecting all aspects of her daily functioning. She is declining medication at this time, but does agree to [facility] intervention. WHO done. Counseling done. Will followup in one month. Assessment & Plan (12/02/2024 9:40 AM EDT): - PHQ9 score 19 and GAD7 score 21 on 12/02/24, 14 and 21 respectively on 02/17/24 - previously receiving counseling, which was very helpful. Her therapist and CBT was stopped. - patient had been hesitant to be referred to a new therapist, but not agrees - seen by our integrated behavioral health service clinician today - increase sertraline to 100 mg daily - Treatment Hx: - escitalopram 10 mg daily (started in Feb 2024), patient had not been adherent - started sertraline by her OBGYN in 2024. - patient was prescribed lorazepam for seizure (her neurologist instructed her to take every morning, rather than prn seizure). Patient did not want to continue due to its [employer] depression effect. Assessment & Plan (09/24/2024 10:35 AM EDT): - PHQ9 score 14 and GAD7 score 21 on 02/17/24 - previously receiving counseling, which was very helpful. Her therapist and CBT was stopped. - patient declines a referral to integrated behavioral health service - continue escitalopram 10 mg daily (started in Feb 2024), improve adherence - patient was prescribed lorazepam for seizure (her neurologist instructed her to take every morning, rather than prn seizure). Continue judicious use of lorazepam. Refill sent since patient is no longer seeing the original prescriber. Assessment & Plan (06/06/2024 12:27 PM EST): - PHQ9 score 14 and GAD7 score 21 on 02/17/24 - previously receiving counseling, which was very helpful. Her therapist and CBT was stopped. - patient declines a referral to integrated behavioral health service - continue escitalopram 10 mg daily (started in Feb 2024), improve adherence - patient is prescribed BZD for seizure (her neurologist instructed her to take every morning, rather than prn seizure). Assessment & Plan (03/21/2024 3:59 PM EST): - PHQ9 score 14 and GAD7 score 21 on 02/17/24 - patient declines a referral to integrated behavioral health service - continue escitalopram 10 mg daily (started in Feb 2024) Assessment & Plan (02/17/2024 9:45 AM EDT): - PHQ9 score 14 and GAD7 score 21 - patient declines a referral to integrated behavioral health service - will start escitalopram 5 mg daily, increase to 10 mg in 2 weeks Atopic dermatitis 05/18/2020 Overview (02/09/2024): TAC 0.025% BID as rescue Last Assessment & Plan: No issues, no meds Assessment & Plan (03/21/2024 3:53 PM EST): - previously using TAC 0.025% bid for mod-severe lesions - use hypoallergenic skin care product Assessment & Plan (02/17/2024 9:43 AM EDT): - previously using TAC 0.025% bid for mod-severe lesions - use hypoallergenic skin care product Vasovagal syncope 05/10/2019 Overview (02/09/2024): 04/2019: EEG ( wake & asleep. Photic stim & hyperventilation did not trigger any events) & EKG normal 2019: Saw Dr Baez (cardiology). All well. 48 hour Holter done - no result Last Assessment & Plan: Recurrence of syncope, unclear why - exam non-focal in office Will do labs and have her eat small frequent meals and maximize water intake IF she gets the sweaty feeling again sit or lie down right away Assessment & Plan (12/02/2024 9:34 AM EDT): - normal EEG and MRI - normal Holter monitor - likely vasovagal - precautionary measure and adequate fluid intake Assessment & Plan (03/21/2024 3:54 PM EST): - normal EEG and MRI - normal Holter monitor - likely vasovagal - precautionary measure and adequate fluid intake Resolved Problems Problem Noted Date Diagnosed Date Resolved Date Viral upper respiratory tract infection 11/02/2024 12/01/2024 Assessment & Plan (11/02/2024 1:23 PM EDT): I advise to drink plenty of fluids and rest I will prescribe short course of loratadine D Acetaminophen as needed Encounters Date Type Department Care Team Description 04/11/2025 9:15 AM EST Office Visit [facility] [address] [place] [id number] Eloisa Brambila MD Mild intermittent asthma without complication (Primary Dx); Vaccine counseling; Screening-pulmonary TB; Encounter for hepatitis C screening test for low risk patient; Screening for HIV without presence of risk factors; Impacted cerumen, left ear; Physical exam 04/11/2025 Travel 02/21/2025 Telephone [facility] [address] [place], [place] [phone] Adrianna Bukr MD No Show 02/18/[address] [phone] Adrianna Burk MD chartprep 02/18/2025 Telephone [facility] [address] [place], [place] [phone] Adrianna Burk MD Insurance from Last 3 Months Immunizations Immunization Administration Dates Next Due DTaP, 5 pertussis antigens 08/04/2008,,02/17/2004,12/06,2003 HPV 9-Valent 04/01/2016,10/03/2015 Hep A, ped/adol, 2 dose 04/16/2017,10/03/2015 Hep B, Adolescent or Pediatric 01/29/2005,2003,2003 Hib (HbOC) 02/27/2005,02/17/2004,2003 Hib (PRP-T) 2003 IPV 08/04/2008, 5,2003,09/12 Influenza injectable quadriv alent preservative free 06/20/2023,06/06/2021,04/12/2020,02/07 Influenza, IIV3, injectable 05/26/2007 MMR 08/04/2008,01/29/2005 Meningococcal B, Recombinant 06/20/2023 Meningococcal MCV4P ACYW-135 05/18/2020,10/03/19 16 PPD Test 03/26/2024, 3,11/03/2018,10/13 Pneumococcal Conjugate PCV 20 02/10/2024 Pneumococcal Conjugate PCV 7 02/27/2005, 02/17/2004,2003,09/12 Tdap 10/03/2015 Varicella 08/04/2008,01/29/2005 Family History Medical History Relation Name Comments Asthma Brother Diabetes Maternal Grandfather Breast cancer Maternal Grandmother Diabetes Maternal Grandmother Breast cancer Maternal Great-Grandmother Relation Name Status Comments Brother Maternal Grandfather Maternal Grandmother Maternal Great-Grandmother Other Social History Tobacco Use Types Packs/Day Years Used Date Smoking Tobacco: Never Passive Smoke Exposure: Never Smokeless Tobacco: Never Tobacco Cessation:Counseling Given: Not Answered Alcohol Use Standard Drinks/Week Comments Never 0 (1 standard drink = 0.6 oz pur e alcohol) Depression Answer Date Recorded Patient Health Questionnaire-9 Score 19 12/02/2024 Patient Health Questionnaire-9 Score 19 12/02/2024 Last PHQ-9: Questionnaire Data Not on file 0 12/02/2024 Housing Stability Answer Date Recorded What is your housing situation today? I have annaryan kuo 04/11/[address] you [...] want or need it 05/2024 Comments No Intention Date Recorded Wants to become (finding) 09/16 Sex and Gender Information Value Date Recorded Sex Assigned at Female 09/12/2023 9:36 AM EDT Legal Sex Female 9:36 AM EDT Gender Identity Female 09/12/2023 9:36 AM EDT Sexual Orientation Choose not to disclose 2023 9:36 AM EDT Last Filed Vital Signs Vital Sign Reading [...] Mass Index 25.9 04/11/2025 9:30 AM EST Plan of Treatment Upcoming Encounters Date Type Department Care Team (Late st Contact Info) Description 04/28/2025 11:15 AM EST Office Visit [facility] [address] [place] [address] Adrianna Burk MD [address] [place] [address] Health Maintenance Due Date Last Done Comments Dental Oral Exam 2003 Dental Prophylaxis 2003 HIV Screening 2003 Hepatitis C Screening 07/12/2021 Meningococcal B Vaccine (2 of 2 - Trumenba SCDM 2-dose series) 12/19/2023 06/20/2023 Pap Smear 07/12/2024 COVID-19 Vaccine ( season) 2025 06/25/2022, 06/06/2021, 05/13/2021 Influenza Vaccine (#1) 2025 , 06/06/2021, 04/12/2020, Additional history exists Chlamydia and Gonorrhea Screening 01/15/2025 01/16/2024, 08/04/2023, 06/18/2022, Additional history exists Depression Monitoring 06/04/2025 12/02/2024, 025 Dental X-Ray: Bitewings 08/17/2025 08/16/2024 Family Planning (PISQ) 09/16/2025 09/16/2024 DTaP/Tdap/Td Vaccines (7 - Td or Tdap) 10/02/2025 10/03/2015, 08/04/2008, 02/27/2005, Additional history exists Disability Screening 12/02/2025 12/02/2024 Alcohol/Substance Use Screening 04/11/2026 04/11/2025 SDOH Screening 04/11/2026 04/11/2025 Tobacco Screening 04/11/2026 04/11/2025 Dental X-Ray: Full Mouth 08/18/2027 08/16/2024, 08/2022 Zoster Vaccines (1 of 2) 07/12/2053 RSV Patients and Patients Aged 60 years or older (1 - 1-dose 75+ series) 07/12/2078 Hepatitis B Vaccines Completed 01/29/2005, 02/17/2004, 2003 HIB Vaccines Completed 02/27/2005, 12/2003, 2003, Additional history exists IPV Vaccines Completed 08/04/2008, 01/11, 2003, Additional history exists HPV Vaccines Completed 04/01/2016, 10/03/2015 Hepatitis A Vaccines Completed 04/16/2017, 10/03/19 16 Meningococcal Vaccine Completed 05/18/2020, 016 Pneumococcal Vaccine: Pediatrics (0 to 5 Years) and At-Risk Patients (6 to 49) Years Completed 02/10/2024, 02/27/2005, 02/17/2004, Additional history exists RSV under 20 months Aged Out No longe r eligible based on patient's age to complete this topic Rotavirus Vaccines Aged Out No longer eligible based on patient's age to complete this topic Procedures Procedure Name Priority Date/Time Associated Diagnosis Comments CBC Routine 04/11/2025 10:09 AM EST Menorrhagia with regular cycle PANORAMIC RADIOGRAPHIC IMAGE Routine 08/16/2024 11:30 AM EDT BITEWING - SINGLE RADIOGRAPHIC IMAGE Routine 08/16/2024 11:30 AM EDT from Last 3 Months or Most Recently Relevant to Health Maintenance Results * (ABNORMAL) CBC (04/11/2025 10:09 AM EST) White Blood Count 9.6 4.8 - 10.8 X10*3/uL [facility] Red Blood Count 4.90 4.20 - 5.50 X10*6/uL [facility] Hemoglobin 15.7 12.0 - 16.0 g/dl [facility] Hematocrit 44.5 37.0 - 47.0 % [facility] Mean Corpuscular Volume 90.8 80.0 - 98.0 fL [facility] Mean Corpuscular Hemoglobin 32.0 27.0 - 33.0 pg [facility] Mean Corpuscular HGB Conc 35.3(H) 31.0 - 35.0 g/dl [facility] Red Cell Distribution Width 11.5 11.0 - 16.0 % [facility] Platelet Count 391 160 - 400 X10*3/uL [facility] Mean Platelet Volume 9.3(L) 9.4 - 12.3 fL [facility] NRBC Pct Auto 0.0 0.0 - 0.2 /100WBC [facility] NRBC Abs Auto 0.000 0.0 - 0.012 X10*3/uL [facility] Blood Venous blood specimen / Unknown 04/11/2025 10:09 AM EST 04/11/2025 11:05 AM EST us Lilly Owen CNM LAB BLOOD ORDERABLES Rebecca brooke Result [facility] [address] [place] [address] [phone] from Last 3 Months Insurance [place] C[place] [facility] MEDICAID STAND ADULT Care Teams Teradata Solution Architect Relationship Specialty Start Date End Date Adrianna Burk MD [address] [place] [phone] PCP - General Family Medicine 11/21/23
--- OUTSIDE RECORDS SUMMARY | 2025-04-11 12:11 | XMS_ITS | Clinical Summary ---
Author Organization [facility] Address [address] [facility] [address] [place] [address] Phone Care Team Providers Care General Operations Agent Name Role Phone Ashlyn Todd NP Primary Care Provider Allergies No known active allergies Medications cetirizine (ZYRTEC) 10 MG tablet Take 10 mg by mouth daily. 09/03/2023 Active Family History Medical History Relation Comments Diabetes Maternal Grandmother Asthma Sister Relation Status Comments Maternal Grandmother Sister Social History Tobacco Use Types Packs/Day Years Used Date Smoking Tobacco: Never Assessed Education Answer Date Recorded Are you interested in more education? Not on marco e 09/08/2023 Are you concerned about learning? Not on file 09/08/2023 No 09/08/2023 No 09/08/2023 Digital Access Answer Date Recorded No 09/08/2023 No 09/08/2023 Reliable internet access at home? Not on file 09/08/2023 Device with a working camera? Not on file Comments Unknown Sex and Gender Information Value Date Recorded Sex Assigned at Not on file Legal Sex Female 1:50 PM EDT Gender Identity Not on file Sexual Orientation Not on file Last Filed Vital Signs Vital Sign Reading Time Taken Comments Blood Pressure 122/78 11/06/2023 2:53 PM EDT Pulse 99 11/06/2023 2:53 PM EDT Temperature - - Respiratory Rate - - Oxygen Saturation 98% 11/06/2023 2:53 PM EDT Inhaled Oxygen Concentration - - Weight 54.1 kg (119 lb 3.2 oz) 11/06/2023 2:53 P M EDT Height 151 cm (4' 11.45 ) 11/06/2023 2:53 PM EDT Body Mass Index 23.71 11/06/2023 2:53 PM EDT Plan of Treatment Health Maintenance Due Date Last Done Comments DEPRESSION SCREENING 2015 COMBINED DTaP,Tdap,Td (2 - T d or Tdap) 10/31/2015 10/03/2015 SMOKING Hx and SMOKELESS TOBACCO SCREENING 07/12/2016 HPV VACCINES (1 - 3-dose series) 07/12/2018 CHLAMYDIA SCREENING 2019 MENINGOCOCCAL VACCINES (B) ( 1 of 2 - Standard) 2019 ADOLESCENT UNIVERSAL LIPID SCREENING 07/12/2020 HEPATITIS C SCREENING 07/12/2021 HIV ONE-TIME SCREENING (18-6 5 YEARS) 07/12/2021 PAP SMEAR 07/12/2024 INFLUENZA VACCINE (#1) 2024 COVID-19 VACCINE (1 - 2024-2 6 season) 2025 Adult Td,Tdap Booster 10/02/2025 10/03/2015 MMR VACCINES Completed 08/04/2008, 01/29/2005 HEPATITIS A VACCINES Aged Out No long er eligible based on patient's age to complete this topic HIB VACCINES Aged Out No longer eligi ble based on patient's age to complete this topic MENINGOCOCCAL VACCINES (ACWY) Aged Out No longer eligible based on patient's age to complete this topic PNEUMOCOCCAL VACCINES (0-49 years) Aged Out No longer eligible b ased on patient's age to complete this topic Medical Devices Not on file Insurance [facility] [employer] [address] [place] [address] [place] [address] ACO C3 ACO [facility] [place] [address] [place] [address] ACO C3 ACO [facility] [address] C3 ACO [facility] [address] C3 ACO Care Teams General Operations Agent Relationship Specialty Start Date End Date Ashlyn Todd NP [address] [place] [phone] PCP - General Nurse Practitioner 09/08/23 Additional Source Comments The information contained in this document represents components of the legal health record. It is not the complete legal health record.[facility]
--- OUTSIDE RECORDS SUMMARY | 2025-04-11 12:11 | XMS_ITS | Encounter Summary ---
Author Organization [employer] Address [address] [place] [address] Care Team Providers Care Switchboard Manager Name Role Phone Adrianna Burk MD Primary Care Provider [phone] Encounter Details Date Type Department Care Team (Latest Contact Info) Description 04/11/2025 Travel Social History Tobacco Use Types Packs/Day Years [...] AM EDT documented as of this encounter Plan of Treatment Upcoming Encounters Date Type Department Care Team (Late st Contact Info) Description 04/28/2025 11:15 AM EST Office Visit [facility] [address] [place] [address] Adrianna Burk MD [address] [place] [address] documented as of this encounter Visit Diagnoses Not on filedocumented in this encounter Additional Health Concerns Assessment Noted Time PHQ-9 Depression Total Score: 19 12/02/2 025 9:07 AM EDT documented as of this encounter Care Teams Switchboard Manager Relationship Specialty Start Date End Date Adrianna Burk MD [address] [place] [address] PCP - General Family Medicine 11/21/23 documented as of this encounter
--- OUTSIDE RECORDS SUMMARY | 2025-04-11 12:11 | XMS_ITS | Encounter Summary ---
Author Organization [facility] Address [facility] [address] [place] [phone] Phone Care Team Providers Care Installation Coordinator Name Role Phone Ashlyn Todd NP Primary Care Provider Encounter Details Date Type Department Care Team (Late st Contact Info) Description 11/06/2023 Procedure Pass [facility] at [address] [address] Social History Tobacco Use Types Packs/Day Years [...] on file Sexual Orientation Not on file documented as of this encounter Plan of Treatment Not on file documented as of this encounter Visit Diagnoses Not on filedocumented in this encounter Care Teams Installation Coordinator Relationship Specialty Start Date End Date Ashlyn Todd NP [address] [place] [address] PCP - General Nurse Practitioner 09/08/23 documented as of this encounter Additional Source Comments The information contained in this document represents components of the legal health record. It is not the complete legal health record.[facility]
[2025-04-11 12:41] LABS: HIV Num 1 0.14 S/CO (0.00-0.99); ~HepC Num1 0.13 S/CO (0.00-0.79); ~Hepatitis C Antibody Nonreactive (Nonreactive)
[2025-04-12 09:19] LABS: Rubeola IgG (Measles) 209.00 AU/mL
[2025-04-14 11:49] LABS: TS Negative Control Passed; TS Panel A 3; TS Panel B 0; TS Positive Control Passed; TSpotTB Negative (Negative)
== END 2025-04-11 10:01 | disposition home or self-care (01) ==
LOC: HO.HHCL 10:00
PROVIDERS: Advanced Practice Midwife; PCP Family Medicine; Visit Provider Family Medicine
DX: Z01.84 Encounter for antibody response examination (principal); Z11.4 Encounter for screening for human immunodeficiency virus [HIV]; Z11.1 Encounter for screening for respiratory tuberculosis; Z11.59 Encounter for screening for other viral diseases; N92.0 Excessive and frequent menstruation with regular cycle; Z71.85 Encounter for immunization safety counseling
CPT/HCPCS: 36415; 84443; 85027; 86481; 86735; 86762; 86765; 86803; 87389